=== PATIENT | female | born 1945 | race Caucasian/White ===

== ENCOUNTER 2024-11-29 15:37 | Emergency (ER) | payer MEDICARE | END 2024-11-29 17:14 | disposition home or self-care (01) | LOC: MADERS 15:37 | DX: I80.02 Phlebitis and thrombophlebitis of superficial vessels of left lower extremity (principal); I10 Essential (primary) hypertension; C53.9 Malignant neoplasm of cervix uteri, unspecified; A49.01 Methicillin susceptible Staphylococcus aureus infection, unspecified site | CPT/HCPCS: 36415; 85379; 99283 ==